=== PATIENT | female | born 1965 | race Caucasian/White ===

== ENCOUNTER 2022-07-01 10:03 | Emergency (ER) | payer MEDICAID ==
[~2022-07-01] VITALS: Ht 165.1 cm; Wt 65.9 kg
[2022-07-01 10:08] VITALS: BP 172/89
== END 2022-07-01 13:45 | disposition home or self-care (01) ==
LOC: ER 10:04
DX: M25.561 Pain in right knee (principal); Z88.8 Allergy status to other drugs, medicaments and biological substances; Z79.899 Other long term (current) drug therapy; X50.1XXA Overexertion from prolonged static or awkward postures, initial encounter; Y93.89 Activity, other specified; Y92.89 Other specified places as the place of occurrence of the external cause; Y99.8 Other external cause status
CPT/HCPCS: 29505; 73560; 99283

== ENCOUNTER 2024-05-12 20:51 | Emergency (ER) | payer MEDICAID ==
[~2024-05-12] VITALS: Ht 165.1 cm; Wt 68.0 kg
[~2024-05-12 20:51] MED LIST: OMEP20TA23 PO; ONDA4TAB6 PO
[2024-05-12 21:06] VITALS: BP 170/103; PULSE 91; RESP 16; O2SAT 98
[2024-05-12 21:57] LABS: BILIRUBIN,URINE NEGATIVE (Neg); CLARITY,URINE SLIGHTLY CLOUDY (Clear); COLOR,URINE YELLOW (Yellow); GLUCOSE, URINE NEGATIVE (Neg); KETONES,URINE NEGATIVE (Neg); LEUKOCYTE ESTERASE ,URINE NEGATIVE (Neg); NITRITES, URINE POSITIVE (Neg); OCCULT BLOOD,URINE NEGATIVE (Neg); PH,URINE 5.5 (4.8-8.0); PROTEIN,URINE TRACE mg/dl (Neg); UROBILINOGEN,URINE 0.2 E.U/dL (0.2-1.0)
[2024-05-12 22:02] LABS: UA COLLECTION TYPE CLN CATCH MIDSTREAM
[2024-05-12 22:04] LABS: BACTERIA,URINE 3+ /HPF (Neg); SQUAMOUS EPITHELIAL CELL,UR FEW /LPF (FEW); WBC,URINE 30-50 /HPF (0-4)
[2024-05-12 22:05] LABS: AMORPHOUS URATES 1+; MUCUS STRANDS FEW /LPF (Neg); RBC,URINE NONE SEEN /HPF (0-2); TRANSITIONAL EPI CELLS,URINE FEW /HPF
[2024-05-12] MEDS ORDERED: PHEN-716 PO (22:35)
[2024-05-12] MEDS ORDERED: CEPH-585 PO (22:35)
[2024-05-12] MEDS: CefTRIAXone 1000mg IM Kit (w/lidocaine diluent) IM ONE (22:50)
[2024-05-12] MEDS: phenazopyridine 100mg tablet PO ONE (22:51)
[2024-05-12 22:58] VITALS: TEMP 98
== END 2024-05-12 22:59 | disposition home or self-care (01) ==
LOC: ER 20:52
DX: N39.0 Urinary tract infection, site not specified (principal); Z88.8 Allergy status to other drugs, medicaments and biological substances; Z88.6 Allergy status to analgesic agent; Z79.899 Other long term (current) drug therapy
CPT/HCPCS: 81001; 87077; 87088; 87186; 96372; 99283; J0696

== ENCOUNTER 2024-06-12 10:21 | Inpatient (IN) | payer MEDICAID ==
[~2024-06-12] VITALS: Ht 160 cm; Wt 78.3 kg
[~2024-06-12 10:21] MED LIST changes: +PHEN-716 PO
[2024-06-12] MEDS ORDERED: MELO-102 PO (12:45)
[2024-06-12 13:18] LABS: BASOPHILS # (AUTO) 0.1 X10'3 (0-0.2); BASOPHILS % (AUTO) 0.2 % (0-1); EOSINOPHILS % (AUTO) 0 % (0-6); HEMATOCRIT 43.3 % (35.0-45.0); HEMOGLOBIN 14.1 g/dl (12.0-16.0); LYMPHOCYTES # (AUTO) 0.8 X10'3 (1.1-4.8); LYMPHOCYTES % (AUTO) 3.2 % (21-51); MEAN CORPUSCULAR HEMOGLOBIN 27.8 PG (27.0-31.0); MEAN CORPUSCULAR HGB CONC 32.5 g/dL (33.0-36.5); MEAN CORPUSCULAR VOLUME 85.7 FL (78-98); MEAN PLATELET VOLUME 7.7 FL (7.4-10.4); MONOCYTES # (AUTO) 1.2 X10'3 (0-0.9); MONOCYTES % (AUTO) 5.1 % (2-12); NEUTROPHILS # (AUTO) 21.5 X10'3 (1.8-7.7); NEUTROPHILS % (AUTO) 91.5 % (42-75); PLATELET COUNT 205 X10'3 (140-440); RED BLOOD COUNT 5.06 X10'6 (4.20-5.60); RED CELL DISTRIBUTION WIDTH 15.5 % (11.5-14.5); WHITE BLOOD COUNT 23.5 X10'3 (4.5-11.0)
[2024-06-12 13:39] LABS: ALANINE AMINOTRANSFERASE 19 U/L (12-78); ALBUMIN 3.4 G/DL (3.4-5.0); ALBUMIN/GLOBULIN RATIO 0.8 (1.1-1.5); ALKALINE PHOSPHATASE 88 IU/L (46-116); ANION GAP 8 (8-16); ASPARTATE AMINO TRANSFERASE 19 U/L (10-37); BILIRUBIN,TOTAL 0.5 MG/DL (0.1-1.0); BLOOD UREA NITROGEN 18 MG/DL (7-18); BUN/CREATININE RATIO 14.8 (10.0-20.0); CALCIUM 8.7 MG/DL (8.5-10.1); CHLORIDE 98 MMOL/L (99-107); CREATININE 1.22 MG/DL (0.40-0.90); GLUCOSE 120 MG/DL (70-104); POTASSIUM 3.9 MMOL/L (3.5-5.1); SODIUM 136 MMOL/L (135-145); TOTAL CARBON DIOXIDE 30.4 MMOL/L (24-32); TOTAL PROTEIN 7.7 G/DL (6.4-8.2); eCRCL 41 ML/MIN; eGFR 45 ML/MIN
[2024-06-12 14:02] LABS: TOTAL CELLS COUNTED 100
[2024-06-12 14:03] LABS: PLATELET ESTIMATE NORMAL; STOMATOCYTES 1+
[2024-06-12 14:28] LABS: BILIRUBIN,URINE NEGATIVE (Neg); CLARITY,URINE CLOUDY (Clear); COLOR,URINE YELLOW (Yellow); GLUCOSE, URINE NEGATIVE (Neg); KETONES,URINE TRACE mg/dl (Neg); LEUKOCYTE ESTERASE ,URINE MODERATE (Neg); NITRITES, URINE NEGATIVE (Neg); OCCULT BLOOD,URINE NEGATIVE (Neg); PROTEIN,URINE 100 mg/dl (Neg); UROBILINOGEN,URINE 0.2 E.U/dL (0.2-1.0)
[2024-06-12 14:30] LABS: UA COLLECTION TYPE CLN CATCH MIDSTREAM
[2024-06-12 14:42] LABS: BACTERIA,URINE 1+ /HPF (Neg); MUCUS STRANDS MODERATE /LPF (Neg); RBC,URINE NONE SEEN /HPF (0-2); SQUAMOUS EPITHELIAL CELL,UR MANY /LPF (FEW); WBC,URINE 30-50 /HPF (0-4)
[2024-06-12 15:07] LABS: PRO BRAIN NATRIURETIC PEPTIDE 381 PG/ML (0-125)
[2024-06-12] MEDS ORDERED: CefTRIAXone 2gm/D5W 50ml BAG 50 ML IV ONE (15:35)
[2024-06-12] MEDS: levoFLOXACIN-Levaquin 500mg/D5 100 ML IV ONE (15:35)
[2024-06-12] MEDS ORDERED: magnesium sulf-water 2g/50mL 50 ML IV PRN (15:40)
[2024-06-12] MEDS ORDERED: magnesium sulf-water 4G/100mL 100 ML IV PRN (15:40)
[2024-06-12] MEDS ORDERED: DEXTROSE 15 GM of carb/4 tabs (each vial/BOTTLE has 4 tablets) PO PRN ×2 (15:40)
[2024-06-12] MEDS ORDERED: dextrose 50%-water 50ml dispensing syringe IV PRN ×2 (15:40)
[2024-06-12] MEDS ORDERED: mag hydrox/Alum hydrox/simeth 30ml oral suspension PO PRN (15:40)
[2024-06-12] MEDS ORDERED: albuterol 2.5 MG/3 ML nebule NEB PRN (15:40)
[2024-06-12] MEDS ORDERED: potassium Cl 20 mEq SR tablet PO PRN ×2 (15:40)
[2024-06-12] MEDS ORDERED: potassium Cl 40MEQ/1/2NS 520ml 520 ML IV PRN (15:40)
[2024-06-12] MEDS ORDERED: vancomycin inj 1,000 MG in normal saline 250ml IV soln 250 ML IV ONE (15:40)
[2024-06-12] MEDS ORDERED: glucagon, human recombinant 1mg kit SUBCUT PRN (15:40)
[2024-06-12] MEDS ORDERED: vancomycin 1,750 MG in NS 350ml IV soln IV ONE (16:05)
[2024-06-12] MEDS: CEFEPIME 2gm in D5W 50mL 50 ML IV SCH (16:42)
[2024-06-12] MEDS: INSULIN LISPRO 100 UNIT/ML INSULN.PEN MULTI-DOSE SQ SCH (17:00)
[2024-06-12] MEDS: VANCOMYCIN/H2O 1.75g/350mL PB 350 ML IV ONE (18:57)
[2024-06-12] MEDS: normal saline 1000ml 1,000 ML IV SCH (18:57)
[2024-06-12 19:22] VITALS: PULSE 95; RESP 22; O2SAT 96
[2024-06-12] MEDS: docusate sod 100mg capsule PO SCH (20:00)
[2024-06-12] MEDS: K and/or MAG REPLACEMENT MC SCH (20:00)
[2024-06-12] MEDS: enoxaparin 40mg/0.4ml syringe SQ SCH (20:04)
[2024-06-12 21:30] VITALS: BP 85/58; PULSE 92; RESP 22; TEMP 99.2; O2SAT 89
[2024-06-12 22:00] VITALS: RESP 18
[2024-06-12 23:45] LABS: URINE AMPHETAMINE SCREEN POSITIVE (Neg); URINE BARBITUATE SCREEN NEGATIVE (Neg); URINE BENZODIAZEPINES SCREEN NEGATIVE (Neg); URINE CANNABINOID SCREEN NEGATIVE (Neg); URINE COCAINE SCREEN NEGATIVE (Neg); URINE METHADONE SCREEN NEGATIVE (Neg); URINE OPIATE SCREEN POSITIVE (Neg); URINE PHENCYCLIDINE SCREEN NEGATIVE (Neg)
[2024-06-13] VITALS (9 sets, daily range): BP systolic 122–148; BP diastolic 62–84; PULSE 67–94; RESP 14–18; TEMP 97.4–98.6; O2SAT 92–100
[2024-06-13] MEDS: acetaminophen 325mg tablet PO PRN (00:33)
[2024-06-13 04:47] LABS: BASOPHILS # (AUTO) 0.1 X10'3 (0-0.2); BASOPHILS % (AUTO) 0.3 % (0-1); EOSINOPHILS % (AUTO) 0.1 % (0-6); HEMATOCRIT 37.1 % (35.0-45.0); LYMPHOCYTES # (AUTO) 1.7 X10'3 (1.1-4.8); LYMPHOCYTES % (AUTO) 6.9 % (21-51); MEAN CORPUSCULAR HEMOGLOBIN 27.9 PG (27.0-31.0); MEAN CORPUSCULAR HGB CONC 32.4 g/dL (33.0-36.5); MEAN PLATELET VOLUME 7.2 FL (7.4-10.4); MONOCYTES # (AUTO) 1.4 X10'3 (0-0.9); MONOCYTES % (AUTO) 5.6 % (2-12); NEUTROPHILS # (AUTO) 21.4 X10'3 (1.8-7.7); NEUTROPHILS % (AUTO) 87.1 % (42-75); PLATELET COUNT 158 X10'3 (140-440); RED BLOOD COUNT 4.32 X10'6 (4.20-5.60); RED CELL DISTRIBUTION WIDTH 15.4 % (11.5-14.5); WHITE BLOOD COUNT 24.5 X10'3 (4.5-11.0)
[2024-06-13] MEDS: VANCOMYCIN 1GM 200ML H20 (PEG) 200 ML IV SCH (05:15)
[2024-06-13 05:29] LABS: ALANINE AMINOTRANSFERASE 12 U/L (12-78); ALBUMIN 2.7 G/DL (3.4-5.0); ALBUMIN/GLOBULIN RATIO 0.7 (1.1-1.5); ALKALINE PHOSPHATASE 73 IU/L (46-116); ANION GAP 3 (8-16); ASPARTATE AMINO TRANSFERASE 15 U/L (10-37); BILIRUBIN,TOTAL 0.4 MG/DL (0.1-1.0); BLOOD UREA NITROGEN 25 MG/DL (7-18); BUN/CREATININE RATIO 22.1 (10.0-20.0); CALCIUM 8.3 MG/DL (8.5-10.1); CHLORIDE 104 MMOL/L (99-107); CREATININE 1.13 MG/DL (0.40-0.90); GLUCOSE 114 MG/DL (70-104); MAGNESIUM 1.5 MG/DL (1.5-2.4); POTASSIUM 3.5 MMOL/L (3.5-5.1); SODIUM 139 MMOL/L (135-145); TOTAL CARBON DIOXIDE 32.1 MMOL/L (24-32); TOTAL PROTEIN 6.7 G/DL (6.4-8.2); eCRCL 44 ML/MIN; eGFR 49 ML/MIN
[2024-06-13] MEDS: nicotine 21mg patch - 24 hr TD SCH (08:49)
[2024-06-13] MEDS: normal saline 1000ml 1,000 ML IV ONE (10:43)
[2024-06-13] MEDS: loratadine 10mg tablet PO SCH (16:48)
[2024-06-13] MEDS: ipratropium/albuterol 3ml nebule NEB PRN (20:31)
[2024-06-13] MEDS: CEFEPIME 2gm in D5W 50mL 50 ML IV SCH (21:30)
[2024-06-13] MEDS: ondansetron/PF 4mg/2ml inj IV PRN (22:08)
[2024-06-13] MEDS: ibuprofen tablet 400 MG TABLET PO ONE (23:56)
[2024-06-13] MEDS: diphenhydrAMINE 50 mg/ml inj IV ONE (23:56)
[2024-06-14] VITALS (9 sets, daily range): BP systolic 123–145; BP diastolic 70–79; PULSE 81–87; RESP 14–18; TEMP 97.6–99.3; O2SAT 87–96
[2024-06-14 04:47] LABS: BASOPHILS % (AUTO) 0.3 % (0-1); EOSINOPHILS # (AUTO) 0.1 X10'3 (0-0.9); EOSINOPHILS % (AUTO) 0.4 % (0-6); HEMOGLOBIN 11.5 g/dl (12.0-16.0); LYMPHOCYTES # (AUTO) 1.5 X10'3 (1.1-4.8); LYMPHOCYTES % (AUTO) 11.8 % (21-51); MEAN CORPUSCULAR HEMOGLOBIN 28.3 PG (27.0-31.0); MEAN CORPUSCULAR HGB CONC 32.7 g/dL (33.0-36.5); MEAN CORPUSCULAR VOLUME 86.5 FL (78-98); MEAN PLATELET VOLUME 7.6 FL (7.4-10.4); MONOCYTES # (AUTO) 0.6 X10'3 (0-0.9); MONOCYTES % (AUTO) 4.8 % (2-12); NEUTROPHILS # (AUTO) 10.6 X10'3 (1.8-7.7); NEUTROPHILS % (AUTO) 82.7 % (42-75); PLATELET COUNT 145 X10'3 (140-440); RED BLOOD COUNT 4.05 X10'6 (4.20-5.60); RED CELL DISTRIBUTION WIDTH 15.3 % (11.5-14.5); WHITE BLOOD COUNT 12.9 X10'3 (4.5-11.0)
[2024-06-14] MEDS: VANCOMYCIN LEVEL IV ONE (05:00)
[2024-06-14 05:02] LABS: ALANINE AMINOTRANSFERASE 14 U/L (12-78); ALBUMIN 2.5 G/DL (3.4-5.0); ALBUMIN/GLOBULIN RATIO 0.6 (1.1-1.5); ALKALINE PHOSPHATASE 72 IU/L (46-116); ANION GAP 5 (8-16); ASPARTATE AMINO TRANSFERASE 14 U/L (10-37); BILIRUBIN,TOTAL 0.2 MG/DL (0.1-1.0); BLOOD UREA NITROGEN 11 MG/DL (7-18); BUN/CREATININE RATIO 16.2 (10.0-20.0); CALCIUM 8.5 MG/DL (8.5-10.1); CHLORIDE 107 MMOL/L (99-107); CREATININE 0.68 MG/DL (0.40-0.90); GLUCOSE 109 MG/DL (70-104); MAGNESIUM 1.5 MG/DL (1.5-2.4); SODIUM 141 MMOL/L (135-145); TOTAL CARBON DIOXIDE 28.9 MMOL/L (24-32); TOTAL PROTEIN 6.5 G/DL (6.4-8.2); VANCOMYCIN,TROUGH 9.9 ug/mL (10.0-20.0); eCRCL 73 ML/MIN; eGFR 88 ML/MIN
[2024-06-14] MEDS: acetaminophen 325mg tablet PO PRN (08:21)
[2024-06-14] MEDS: magnesium hydroxide 30ml (MOM) UD suspension PO PRN (08:24)
[2024-06-14] MEDS ORDERED: LORA10TA7 PO (10:13)
[2024-06-14] MEDS ORDERED: ALBU2.5V7 NEB (10:13)
[2024-06-14] MEDS ORDERED: LEVO-65 PO (10:13)
[2024-06-14] MEDS ORDERED: bisacodyl 10mg suppository rectal RC PRN (12:30)
[2024-06-14] MEDS: VANCOMYCIN/WATER FOR INJ (PEG) 1.25GM/250 ML IVPB IV SCH (16:22)
[2024-06-14] MEDS ORDERED: ALB0.5UD IH (22:28)
[2024-06-14] MEDS ORDERED: DIPH25CA83 PO (22:28)
[2024-06-15] VITALS (8 sets, daily range): BP systolic 161–174; BP diastolic 90–102; PULSE 20–86; RESP 16–20; TEMP 97.4–98.5; O2SAT 93–97
[2024-06-15 06:10] LABS: BASOPHILS % (AUTO) 0.1 % (0-1); EOSINOPHILS % (AUTO) 0.3 % (0-6); HEMATOCRIT 37.8 % (35.0-45.0); HEMOGLOBIN 12.3 g/dl (12.0-16.0); LYMPHOCYTES # (AUTO) 1.3 X10'3 (1.1-4.8); LYMPHOCYTES % (AUTO) 14.2 % (21-51); MEAN CORPUSCULAR HEMOGLOBIN 27.9 PG (27.0-31.0); MEAN CORPUSCULAR HGB CONC 32.5 g/dL (33.0-36.5); MONOCYTES # (AUTO) 0.6 X10'3 (0-0.9); MONOCYTES % (AUTO) 6.2 % (2-12); NEUTROPHILS # (AUTO) 7.3 X10'3 (1.8-7.7); NEUTROPHILS % (AUTO) 79.2 % (42-75); PLATELET COUNT 168 X10'3 (140-440); RED BLOOD COUNT 4.39 X10'6 (4.20-5.60); RED CELL DISTRIBUTION WIDTH 15.5 % (11.5-14.5); WHITE BLOOD COUNT 9.3 X10'3 (4.5-11.0)
[2024-06-15 06:26] LABS: ALANINE AMINOTRANSFERASE 15 U/L (12-78); ALBUMIN 2.7 G/DL (3.4-5.0); ALBUMIN/GLOBULIN RATIO 0.6 (1.1-1.5); ALKALINE PHOSPHATASE 76 IU/L (46-116); ANION GAP 6 (8-16); ASPARTATE AMINO TRANSFERASE 14 U/L (10-37); BILIRUBIN,TOTAL 0.3 MG/DL (0.1-1.0); BLOOD UREA NITROGEN 11 MG/DL (7-18); BUN/CREATININE RATIO 19.3 (10.0-20.0); CALCIUM 9.1 MG/DL (8.5-10.1); CHLORIDE 103 MMOL/L (99-107); CREATININE 0.57 MG/DL (0.40-0.90); GLUCOSE 107 MG/DL (70-104); MAGNESIUM 1.6 MG/DL (1.5-2.4); POTASSIUM 3.9 MMOL/L (3.5-5.1); SODIUM 141 MMOL/L (135-145); TOTAL CARBON DIOXIDE 31.8 MMOL/L (24-32); TOTAL PROTEIN 7.2 G/DL (6.4-8.2); eCRCL 87 ML/MIN; eGFR > 90 ML/MIN
[2024-06-15] MEDS ORDERED: HALLS - SOOTHE MENTHOL 1.8 MG cough drop LOZENGE MM PRN (11:30)
[2024-06-16] VITALS (9 sets, daily range): BP systolic 148–177; BP diastolic 88–99; PULSE 72–85; RESP 16–22; TEMP 96.9–98.2; O2SAT 92–96
[2024-06-16] MEDS: VANCOMYCIN LEVEL IV ONE (05:20)
[2024-06-16 05:54] LABS: BASOPHILS % (AUTO) 0.5 % (0-1); EOSINOPHILS # (AUTO) 0.1 X10'3 (0-0.9); HEMATOCRIT 39.5 % (35.0-45.0); HEMOGLOBIN 13.1 g/dl (12.0-16.0); LYMPHOCYTES # (AUTO) 1.4 X10'3 (1.1-4.8); LYMPHOCYTES % (AUTO) 23.1 % (21-51); MEAN CORPUSCULAR HEMOGLOBIN 28.5 PG (27.0-31.0); MEAN CORPUSCULAR HGB CONC 33.1 g/dL (33.0-36.5); MEAN PLATELET VOLUME 7.7 FL (7.4-10.4); MONOCYTES # (AUTO) 0.5 X10'3 (0-0.9); MONOCYTES % (AUTO) 8.6 % (2-12); NEUTROPHILS # (AUTO) 4.2 X10'3 (1.8-7.7); NEUTROPHILS % (AUTO) 66.8 % (42-75); PLATELET COUNT 203 X10'3 (140-440); RED BLOOD COUNT 4.59 X10'6 (4.20-5.60); RED CELL DISTRIBUTION WIDTH 14.7 % (11.5-14.5); WHITE BLOOD COUNT 6.2 X10'3 (4.5-11.0)
[2024-06-16 06:09] LABS: ALANINE AMINOTRANSFERASE 17 U/L (12-78); ALBUMIN 2.7 G/DL (3.4-5.0); ALBUMIN/GLOBULIN RATIO 0.6 (1.1-1.5); ALKALINE PHOSPHATASE 74 IU/L (46-116); ANION GAP 3 (8-16); ASPARTATE AMINO TRANSFERASE 19 U/L (10-37); BILIRUBIN,TOTAL 0.3 MG/DL (0.1-1.0); BLOOD UREA NITROGEN 11 MG/DL (7-18); BUN/CREATININE RATIO 16.7 (10.0-20.0); CALCIUM 9.2 MG/DL (8.5-10.1); CHLORIDE 103 MMOL/L (99-107); CREATININE 0.66 MG/DL (0.40-0.90); GLUCOSE 112 MG/DL (70-104); MAGNESIUM 1.7 MG/DL (1.5-2.4); POTASSIUM 3.9 MMOL/L (3.5-5.1); SODIUM 141 MMOL/L (135-145); TOTAL CARBON DIOXIDE 35.4 MMOL/L (24-32); TOTAL PROTEIN 7.5 G/DL (6.4-8.2); VANCOMYCIN,TROUGH 13.5 ug/mL (10.0-20.0); eCRCL 75 ML/MIN; eGFR > 90 ML/MIN
[2024-06-16] MEDS: amLODIPine 5mg tablet PO SCH (14:08)
[2024-06-16] MEDS: VANCOMYCIN 1,500MG in normal saline IV soln 300 ML IV SCH (17:30)
[2024-06-16] MEDS: amLODIPine 5mg tablet PO ONE (23:59)
[2024-06-17 04:36] VITALS: PULSE 72; RESP 16; O2SAT 92
[2024-06-17 04:43] VITALS: PULSE 76; RESP 16
[2024-06-17 06:00] VITALS: BP 153/98; PULSE 80; RESP 16; TEMP 98.8; O2SAT 91
[2024-06-17 08:00] VITALS: RESP 18; O2SAT 97
[2024-06-17 08:46] LABS: BASOPHILS # (AUTO) 0.1 X10'3 (0-0.2); BASOPHILS % (AUTO) 0.8 % (0-1); EOSINOPHILS # (AUTO) 0.1 X10'3 (0-0.9); EOSINOPHILS % (AUTO) 1.1 % (0-6); HEMATOCRIT 42.6 % (35.0-45.0); HEMOGLOBIN 14.1 g/dl (12.0-16.0); LYMPHOCYTES # (AUTO) 1.5 X10'3 (1.1-4.8); LYMPHOCYTES % (AUTO) 22.3 % (21-51); MEAN CORPUSCULAR HEMOGLOBIN 28.1 PG (27.0-31.0); MEAN CORPUSCULAR HGB CONC 33.1 g/dL (33.0-36.5); MEAN CORPUSCULAR VOLUME 84.9 FL (78-98); MEAN PLATELET VOLUME 7.1 FL (7.4-10.4); MONOCYTES # (AUTO) 0.3 X10'3 (0-0.9); MONOCYTES % (AUTO) 4.2 % (2-12); NEUTROPHILS # (AUTO) 4.8 X10'3 (1.8-7.7); NEUTROPHILS % (AUTO) 71.6 % (42-75); PLATELET COUNT 245 X10'3 (140-440); RED BLOOD COUNT 5.01 X10'6 (4.20-5.60); RED CELL DISTRIBUTION WIDTH 14.8 % (11.5-14.5); WHITE BLOOD COUNT 6.6 X10'3 (4.5-11.0)
[2024-06-17 09:23] LABS: ALANINE AMINOTRANSFERASE 32 U/L (12-78); ALBUMIN/GLOBULIN RATIO 0.6 (1.1-1.5); ALKALINE PHOSPHATASE 86 IU/L (46-116); ANION GAP 10 (8-16); ASPARTATE AMINO TRANSFERASE 30 U/L (10-37); BILIRUBIN,TOTAL 0.4 MG/DL (0.1-1.0); BLOOD UREA NITROGEN 14 MG/DL (7-18); BUN/CREATININE RATIO 20.3 (10.0-20.0); CALCIUM 9.9 MG/DL (8.5-10.1); CHLORIDE 99 MMOL/L (99-107); CREATININE 0.69 MG/DL (0.40-0.90); GLUCOSE 158 MG/DL (70-104); MAGNESIUM 1.7 MG/DL (1.5-2.4); POTASSIUM 3.5 MMOL/L (3.5-5.1); SODIUM 140 MMOL/L (135-145); TOTAL CARBON DIOXIDE 30.9 MMOL/L (24-32); TOTAL PROTEIN 8.4 G/DL (6.4-8.2); eCRCL 72 ML/MIN; eGFR 87 ML/MIN
[2024-06-17 10:22] VITALS: BP 155/90; PULSE 96; RESP 20; TEMP 98.5; O2SAT 96
[2024-06-17 11:12] VITALS: PULSE 96; RESP 20; O2SAT 96
[2024-06-17] MEDS ORDERED: AMLO5TAB4 PO (11:27)
[2024-06-17] MEDS ORDERED: LOSA50TA64 PO (11:27)
[2024-06-18] MEDS ORDERED: VANCOMYCIN LEVEL IV ONE (04:30)
== END 2024-06-17 14:27 | disposition home or self-care (01) | DRG 720 ==
LOC: ER 10:21 → ED HOLD 15:52 → SUR 3N 21:45
PROVIDERS: ADMIT Family Medicine; ATTEND Family Medicine
DX: A41.9 Sepsis, unspecified organism (principal); J18.9 Pneumonia, unspecified organism; J44.0 Chronic obstructive pulmonary disease with (acute) lower respiratory infection; K21.9 Gastro-esophageal reflux disease without esophagitis; E11.9 Type 2 diabetes mellitus without complications; F17.210 Nicotine dependence, cigarettes, uncomplicated; F15.90 Other stimulant use, unspecified, uncomplicated; F17.290 Nicotine dependence, other tobacco product, uncomplicated; N39.0 Urinary tract infection, site not specified; R09.02 Hypoxemia; S29.012A Strain of muscle and tendon of back wall of thorax, initial encounter; Z59.00 Homelessness unspecified; Z82.49 Family history of ischemic heart disease and other diseases of the circulatory system; Z83.3 Family history of diabetes mellitus; Z90.710 Acquired absence of both cervix and uterus; Z00.00 Encounter for general adult medical examination without abnormal findings; Z88.8 Allergy status to other drugs, medicaments and biological substances; X58.XXXA Exposure to other specified factors, initial encounter; Y93.89 Activity, other specified; Y92.89 Other specified places as the place of occurrence of the external cause; Y99.8 Other external cause status
CPT/HCPCS: 36415; 71046; 71250; 72131; 76700; 80053; 80202; 80305; 81001; 82948; 83036; 83605; 83735; 83880; 85007; 85025; 87040; 87070; 87081; 94640; 94760; 97161; 97530; 99285; A4615; G0378; J0692; J1200; J1650; J1815; J1956; J2405; J3370; J3372; J7030; J7040

== ENCOUNTER 2024-08-20 04:12 | Inpatient (IN) | payer MEDICAID ==
[~2024-08-20] VITALS: Ht 165.1 cm; Wt 81.0 kg
[~2024-08-20 04:12] MED LIST changes: +ALB0.5UD IH; +ALBU2.5V7 NEB; +AMLO5TAB4 PO; +DIPH25CA83 PO; +LORA10TA7 PO; +LOSA50TA64 PO; +MELO-102 PO
[2024-08-20 05:02] LABS: BASOPHILS % (AUTO) 0.8 % (0-1); EOSINOPHILS # (AUTO) 0.1 X10'3 (0-0.9); EOSINOPHILS % (AUTO) 1.5 % (0-6); HEMATOCRIT 35.8 % (35.0-45.0); HEMOGLOBIN 11.8 g/dl (12.0-16.0); LYMPHOCYTES # (AUTO) 1.1 X10'3 (1.1-4.8); LYMPHOCYTES % (AUTO) 16.7 % (21-51); MEAN CORPUSCULAR HEMOGLOBIN 28.5 PG (27.0-31.0); MEAN CORPUSCULAR HGB CONC 32.9 g/dL (33.0-36.5); MEAN CORPUSCULAR VOLUME 86.4 FL (78-98); MEAN PLATELET VOLUME 7.2 FL (7.4-10.4); MONOCYTES # (AUTO) 0.5 X10'3 (0-0.9); MONOCYTES % (AUTO) 7.8 % (2-12); NEUTROPHILS # (AUTO) 4.7 X10'3 (1.8-7.7); NEUTROPHILS % (AUTO) 73.2 % (42-75); PLATELET COUNT 202 X10'3 (140-440); RED BLOOD COUNT 4.15 X10'6 (4.20-5.60); RED CELL DISTRIBUTION WIDTH 14.7 % (11.5-14.5); WHITE BLOOD COUNT 6.5 X10'3 (4.5-11.0)
[2024-08-20 05:20] LABS: ALANINE AMINOTRANSFERASE 24 U/L (12-78); ALBUMIN 3.1 G/DL (3.4-5.0); ALBUMIN/GLOBULIN RATIO 0.8 (1.1-1.5); ALKALINE PHOSPHATASE 95 IU/L (46-116); ANION GAP 1 (8-16); ASPARTATE AMINO TRANSFERASE 27 U/L (10-37); BILIRUBIN,TOTAL 0.3 MG/DL (0.1-1.0); BLOOD UREA NITROGEN 16 MG/DL (7-18); BUN/CREATININE RATIO 22.9 (10.0-20.0); CHLORIDE 106 MMOL/L (99-107); GLUCOSE 107 MG/DL (70-104); POTASSIUM 3.7 MMOL/L (3.5-5.1); SODIUM 140 MMOL/L (135-145); TOTAL CARBON DIOXIDE 33.2 MMOL/L (24-32); eCRCL 77 ML/MIN; eGFR 85 ML/MIN
[2024-08-20 05:29] LABS: PRO BRAIN NATRIURETIC PEPTIDE 287 PG/ML (0-125)
[2024-08-20] MEDS ORDERED: ipratropium/albuterol 3ml nebule NEB PRN (05:45)
[2024-08-20] MEDS ORDERED: methylPREDNISolone sod succ/PF 40mg inj. IV SCH (05:45)
[2024-08-20] MEDS: methylPREDNISolone sod succ 125mg/2ml vial IV ONE (06:58)
[2024-08-20] MEDS: CefTRIAXone 2gm/D5W 50ml BAG 50 ML IV ONE (08:51)
[2024-08-20] MEDS: normal saline 1000ML IV soln IVB ONE (08:51)
[2024-08-20] MEDS: albuterol 2.5 MG/3 ML nebule NEB ONE (08:59)
[2024-08-20 09:01] VITALS: PULSE 72; RESP 20
[2024-08-20] MEDS: azithromycin/NS 500mg/250ml 250 ML IV ONE (09:06)
[2024-08-20 09:07] VITALS: PULSE 70; RESP 20; O2SAT 96
[2024-08-20] MEDS ORDERED: magnesium hydroxide 30ml (MOM) UD suspension PO PRN (13:15)
[2024-08-20] MEDS ORDERED: magnesium sulf-water 4G/100mL 100 ML IV PRN (13:15)
[2024-08-20] MEDS ORDERED: mag hydrox/Alum hydrox/simeth 30ml oral suspension PO PRN (13:15)
[2024-08-20] MEDS ORDERED: acetaminophen 325mg tablet PO PRN (13:15)
[2024-08-20] MEDS ORDERED: magnesium sulf-water 2g/50mL 50 ML IV PRN (13:15)
[2024-08-20] MEDS ORDERED: ondansetron/PF 4mg/2ml inj IV PRN (13:15)
[2024-08-20] MEDS ORDERED: magnesium Cl slow-release 64mg tablet PO PRN (13:15)
[2024-08-20] MEDS ORDERED: potassium Cl 40MEQ/1/2NS 520ml 520 ML IV PRN (13:15)
[2024-08-20] MEDS ORDERED: normal saline 1000ml 1,000 ML IV SCH (13:15)
[2024-08-20] MEDS ORDERED: potassium Cl 20 mEq SR tablet PO PRN ×2 (13:15)
[2024-08-20] MEDS ORDERED: azithromycin/NS 500mg/250ml 250 ML IV ONE (13:25)
[2024-08-20 13:30] LABS: MAGNESIUM 1.8 MG/DL (1.5-2.4)
[2024-08-20 13:40] VITALS: BP 160/98; PULSE 72; RESP 19; TEMP 97.7; O2SAT 93
[2024-08-20] MEDS ORDERED: azithromycin/NS 500mg/250ml 250 ML IV SCH (13:41)
[2024-08-20] MEDS ORDERED: methylPREDNISolone sod succ 125mg/2ml vial IV ONE (14:00)
[2024-08-20] MEDS: methylPREDNISolone sod succ/PF 40mg inj. IV ONE (14:55)
[2024-08-20] MEDS: ipratropium/albuterol 3ml nebule NEB SCH (15:00)
[2024-08-20] MEDS ORDERED: methylPREDNISolone sod succ 125mg/2ml vial IV SCH (20:00)
[2024-08-20] MEDS ORDERED: K and/or MAG REPLACEMENT MC SCH (20:00)
[2024-08-20] MEDS ORDERED: heparin, porcine 5000 units/ml vial SQ SCH (20:00)
[2024-08-20] MEDS ORDERED: docusate sod 100mg capsule PO SCH (20:00)
[2024-08-21] MEDS ORDERED: CefTRIAXone/D5W-Rocephin 1gm 50 ML IV SCH (08:00)
== END 2024-08-20 15:51 | disposition left against medical advice (07) | DRG 140 ==
LOC: ER 04:12 → ED HOLD 07:26 → ORTHO 4S 14:13
PROVIDERS: ADMIT Internal Medicine; ATTEND Internal Medicine
DX: J44.1 Chronic obstructive pulmonary disease with (acute) exacerbation (principal); J18.9 Pneumonia, unspecified organism; J44.0 Chronic obstructive pulmonary disease with (acute) lower respiratory infection; Z20.822 Contact with and (suspected) exposure to COVID-19; Z53.21 Procedure and treatment not carried out due to patient leaving prior to being seen by health care provider; R09.02 Hypoxemia; Z83.3 Family history of diabetes mellitus; Z87.891 Personal history of nicotine dependence; Z88.8 Allergy status to other drugs, medicaments and biological substances
CPT/HCPCS: 36415; 71045; 80053; 83605; 83735; 83880; 84145; 84484; 85025; 87040; 87081; 87502; 87503; 87811; 93005; 94640; 94760; 99285; G0378; J0456; J0696; J2919; J7030

== ENCOUNTER 2025-04-15 11:57 | Inpatient (IN) | payer MEDICAID ==
[~2025-04-15] VITALS: Ht 165.1 cm; Wt 78.0 kg
[~2025-04-15 11:57] MED LIST changes: -AMLO5TAB4 PO; -DIPH25CA83 PO; -LORA10TA7 PO; -LOSA50TA64 PO; -MELO-102 PO; -OMEP20TA23 PO; -ONDA4TAB6 PO; -PHEN-716 PO
--- NOTE | 2025-04-15 13:16 | RADIOLOGY REPORT ---
EXAM: DI CHEST,SINGLE VIEW HISTORY: COUGH WITH WHEEZING COMPARISON: DI CHEST,SINGLE VIEW on DOS: 08/20/24, CT scan of the chest dated 06/12/2024 pick. TECHNIQUE: Portable upright AP view of the chest was performed. FINDINGS: No no pneumothorax or consolidative infiltrates. There is mild Central interstitial prominence. The heart is borderline enlarged. The central pulmonary arteries are ectatic, better characterized on prior CT scan. IMPRESSION: 1. Mild central interstitial prominence may be due to reactive airways disease or mild CHF. 2. Pulmonary arterial hypertension.
[2025-04-15 13:20] LABS: MEAN PLATELET VOLUME 7.5 FL (7.4-10.4); RED CELL DISTRIBUTION WIDTH 14.3 % (11.5-14.5)
[2025-04-15 13:36] LABS: CREATININE 0.81 MG/DL (0.40-0.90); PRO BRAIN NATRIURETIC PEPTIDE 319 PG/ML (0-125); TOTAL CARBON DIOXIDE 36.3 MMOL/L (24-32); eCRCL 66 ML/MIN; eGFR 72 ML/MIN
--- NOTE | 2025-04-15 14:27 | Physician Documentation ---
History of Present Illness ~ Chief Complaint: Suicidal Ideation Stated Complaint: MENTAL HEALTH EVAL Time Seen by MD: 12:44 OK to notify your PCP?: Yes Primary Medical Doctor: Maria Fernanda Ambriz Source: patient Mode of Arrival: EMS Exam Limitations: no limitations HPI Chief Complaint: Suicidal Caveat: None Independent Historians: None History of Present Illness: Patient is a 60-year-old woman who is thought to be homeless. She [facility] Patient states that she has been depressed for a very long time and has not been on any medications. Patient states that she has been suicidal for months. When asked why she decided to come in today she states that she could not take it any longer. Patient did not describe any specific plan to me but told the nurse that she was thinking of taking pills. Patient denies any other symptoms acute illness. No chest pain, no shortness a breath, no abdominal pain, no nausea vomiting diarrhea. Review of systems: All systems were reviewed and are negative except for what is indicated in the history of present illness. Past Medical History: Depression, COPD Past Surgical History: Noncontributory Social History: Tobacco use, uses methamphetamine. Last use methamphetamine two days ago. Denies alcohol use Medications: Reviewed as documented Nursing Notes Allergies: Reviewed as documented in Nursing Notes Medication Reconciliation Allergies: Coded Allergies: lisinopril (Verified Allergy, Intermediate, 06/12/24) baclofen (Verified Allergy, Unknown, 06/12/24) Scheduled PRN Albuterol Sulfate (Albuterol Sulfate), 2.5 MG NEB Q2H PRN for SOB or wheezing Albuterol Sulfate Nebs* (Proventil Nebs*), Unknown Dose IH Q4H PRN for SOB or wheezing, (Reported) Past Medical History Past Medical History: No Pertinent History Patient History: FH: diabetes mellitus FATHER MOTHER FH: heart disease FATHER Review of Systems All Other Systems at this time: Reviewed and Negative ROS Patient denies any other acute symptoms other than above. All other systems are negative Physical Exam Vital Signs: RN Vital Signs have been reviewed: Yes, Temperature: 98.0, Source: Temporal, Heart Rate: 76, Respiratory Rate: 18, BP: 165/81, Pulse Oximetry: 93, Weight: 80.910 Oxygen Flow Rate: 0 Pulse Oximetry Reflects: adequate oxygenation Physical Exam General Appearance: No distress HEENT: Normal OP, moist oral mucosa, PERRL, EOMI Neck: supple, normal ROM, trachea midline Pulmonary: No respiratory distress, CTA, BS equal Cardiac: RRR, no murmur, rub or gallop, GI: nondistended, soft, nontender, normal bowel sounds, no guarding, no rebound Extremities: normal ROM, no swelling, non-tender Skin: intact, dry, warm, no rashes Neuro: AAOx3, speech is clear, no focal motor weakness Psych: Mood congruent, patient appears sad, flat affect, good eye contact, no apparent hallucination, normal speech Progress Results/Orders Results/Orders Orders - BRIAN BUCKLEY MD Urinalysis, Cult If Indicated (04/15/25 12:36) Chest,Single View (04/15/25 13:01) Completed Orders - BRIAN BUCKLEY MD Cbc/Diff (04/15/25 12:36) BMP (04/15/25 12:36) PBNP (04/15/25 12:36) Chest,Single View (04/15/25 13:01) Vital Signs 04/15/25 04/15/25 04/15/25 04/15/25 12:06 12:38 12:39 13:29 Temp 98.0 Pulse 65 90 76 Resp 18 18 17 18 B/P (MAP) 157/105 177/100 (125) 165/81 (109) Pulse Ox 96 95 93 O2 Flow Rate 2.0 0 0 Laboratory Tests Test 04/15/25 12:48 White Blood Count 6.5 Red Blood Count 4.87 Hemoglobin 13.6 Hematocrit 42.0 Mean Corpuscular Volume 86.3 Mean Corpuscular Hemoglobin 27.9 Mean Corpuscular Hemoglobin Concent 32.3 L Red Cell Distribution Width 14.3 Platelet Count 213 Mean Platelet Volume 7.5 Neutrophils (%) (Auto) 62.4 Lymphocytes (%) (Auto) 29.2 Monocytes (%) (Auto) 6.8 Eosinophils (%) (Auto) 0.8 Basophils (%) (Auto) 0.8 Neutrophils # (Auto) 4.1 Lymphocytes # (Auto) 1.9 Monocytes # (Auto) 0.4 Eosinophils # (Auto) 0.1 Basophils # (Auto) 0.1 CBC Comment Sodium Level 141 Potassium Level 4.3 Chloride Level 102 Carbon Dioxide Level 36.3 H Anion Gap 3 L Blood Urea Nitrogen 18 Creatinine 0.81 Estimated GFR/1.73 m2 72 BUN/Creatinine Ratio 22.2 H Glucose Level 101 Calcium Level 8.8 Pro-B-Type Natriuretic Peptide 319 H Albumin 3.3 L Chemistry Comments Medical Decision Making Additional information obtaine: old records Findings Differential diagnosis includes but is not limited to: Depression, suicidal, homicidal, substance abuse, methamphetamine abuse EKG independent interpretation: Chest x-ray, single view, indication: Independent interpretation: Laboratory data independent interpretation: CBC: Unremarkable CMP: Unremarkable Pro BNP: 319 Urinalysis: Pending Toxicology: Pending Emergency department course/medical decision-making: Patient is a 60-year-old woman who states that she is normally usually homicidal not suicidal. Patient may or may not have a plan. Patient is medically cleared and stable for psychiatric evaluation. Patient will be placed on a 1799. Consultation/communications: Psychiatric consultation by [facility] is pending. Differential Dx:Considerations: Include: Other (See above) Departure Time of Disposition: 14:27 Disposition: 30 STILL A PATIENT Impression: Primary Impression: Depression Qualified Codes: F32.2 - Major depressive disorder, single episode, severe without psychotic features Additional Impressions: Suicidal ideations Methamphetamine abuse Condition: Stable Discharge Instructions: Suicidal Feelings: How to Help Yourself, Depression, Adult Education Educated: Patient Educated regarding: diagnosis, treatment Signature Scribe Signature: No scribe Attestation: No scribe BRIAN BUCKLEY MD Apr 15, 2025 14:27
[2025-04-15] MEDS ORDERED: MELO-102 PO (15:08)
[2025-04-15] MEDS ORDERED: LOSA50TA64 PO (15:08)
[2025-04-15] MEDS ORDERED: ALBUTEROL INH (15:08)
[2025-04-15] MEDS ORDERED: AMLO5TAB16 PO (15:08)
[2025-04-15] MEDS ORDERED: CETI10TA14 PO (15:08)
[2025-04-15] MEDS ORDERED: LORA10TA7 PO (15:08)
[2025-04-15] MEDS ORDERED: FLUT16SP BOTHNARES (15:08)
[2025-04-15] MEDS ORDERED: [UNRECOGNIZED DRUG - OTHER] INH (15:08)
[2025-04-15] MEDS ORDERED: NICO-631 TOP (15:08)
[2025-04-15] MEDS ORDERED: LIDO700A47 TD (15:08)
[2025-04-15 15:24] LABS: URINE AMPHETAMINE SCREEN POSITIVE (Neg); URINE BARBITUATE SCREEN NEGATIVE (Neg); URINE BENZODIAZEPINES SCREEN NEGATIVE (Neg); URINE CANNABINOID SCREEN NEGATIVE (Neg); URINE COCAINE SCREEN NEGATIVE (Neg); URINE METHADONE SCREEN NEGATIVE (Neg); URINE OPIATE SCREEN NEGATIVE (Neg); URINE PHENCYCLIDINE SCREEN NEGATIVE (Neg)
[2025-04-15] MEDS: ipratropium/albuterol 3ml nebule NEB ONE (15:24)
[2025-04-15 15:26] VITALS: PULSE 76; RESP 18; O2SAT 97
[2025-04-15 15:30] VITALS: PULSE 91; RESP 18; O2SAT 97
[2025-04-15 15:58] LABS: LEUKOCYTE ESTERASE ,URINE NEGATIVE (Neg); NITRITES, URINE NEGATIVE (Neg); OCCULT BLOOD,URINE NEGATIVE (Neg)
[2025-04-15 15:59] LABS: UA COLLECTION TYPE CLN CATCH MIDSTREAM
[2025-04-16] MEDS: nicotine 14mg patch - 24hr TD SCH (10:20)
[2025-04-16] MEDS: MELOXICAM 7.5 MG TABLET PO SCH (10:21)
[2025-04-16] MEDS: fluticasone nasal spray 16GM bottle NS SCH (10:21)
[2025-04-16 13:55] VITALS: BP 164/92; PULSE 20; RESP 20; TEMP 98.4; O2SAT 92
[2025-04-16 15:10] VITALS: RESP 20; O2SAT 92
[2025-04-16 17:20] VITALS: PULSE 101; RESP 18; O2SAT 96
[2025-04-16] MEDS: albuterol 2.5 MG/3 ML nebule NEB PRN (17:20)
[2025-04-16 17:21] VITALS: PULSE 99; RESP 20
[2025-04-16 19:00] VITALS: RESP 16; O2SAT 93
[2025-04-16 19:51] VITALS: BP 131/86; PULSE 100; RESP 16; TEMP 97.2; O2SAT 93
[2025-04-17 07:00] VITALS: RESP 16; O2SAT 93
[2025-04-17 08:00] VITALS: BP 165/94; PULSE 85; RESP 16; TEMP 98.4; O2SAT 93
--- NOTE | 2025-04-17 13:39 | HISTORY AND PHYSICAL ---
MH History & Physical - Blank History and Physical CHIEF COMPLIANT SUICIDE IDEATION HISTORY OF PRESENT ILLNESS Patient is a 60-year-old woman who is thought to be homeless. She is brought in by ambulance from [facility]. Patient states that she has been depressed for a very long time and has not been on any medications. Patient st ates that she has been suicidal for months. When asked why she decided to come in today she states that she can not take it any longer. Patient did not describe any specific plan to me but told the nurse that she was thinking of taking pills. Patient denies any other symptoms acute illness. No chest pain. No shortness of breath. No abdominal pain. No nausea vomiting diarrhea. CHART REVIEW Pt was placed on a 5150 hold after she presented to the ED reporting that sheis "not well". Doesn't think she can function and made suicidal statements.The pt has been living with her boyfriend for the last 5 years, often camping illegally, she has been using meth for several years, throughout her life she has had 8 children all 8 have had involvement in the [employer] system, all are adutls now, one is from a drug overdose. The pt reports no history of mental illness and doesn't feel she needs mental health treatment or medications because she believes her current issue is "emotional" and describes her current life issues a big part of the problem. The pt states that she has an ECM worker that has been assisting her and was going to refer her to the [facility] at the [facility]. The pt would like her discharge plan to be to the [facility], unsure if this is plausible or not. Will work on a d/c plan once she has stabilized and is close to being ready to discharge. ASSESSMENT The patient was interviewed in observation room. The patient was actively . The patient endorses "I'm depressed and I feel like I was going crazy, nutty" "I am really glad I came in here." The patient endorses she was diagnosed with methamphetamine induced psychosis in in 1986 and was prescribed a medication but can not recall the name of the medication. "I thought I can no longer make it in life." The patient denies a plan. Denies HI. Denies AVH. The patient endorses adequate sleep and food intake The patient is stable no acute distress noted. The patient presents as cooperative and a bit depressed and suicidal. Per staff report patient is medication compliant. Per staff report no abnormal behaviors. Will continue daily assessment and adjusting treatment as needed. Closely monitor behavior and response to medication during hospitalization. Discussed treatment plan with patient. ASE/risks and benefits of chosen treatment. She verbalized understanding and consented to treatment. REVIEW OF LABS WBC 6.6 RBC 4.87 HEMOGLOBIN 13.6 HEMATOCRIT 42.0 PLATELET 213 SODIUM 141 POTASSIUM 4.3 CHLORIDE 102 ANION GAP 3 BUN 18 CREATININE 0.81 CALCIUM 8.8 ALBUMIN 3.3 TSH 0.60 URINALYSIS NEGATIVE URINE TOX SCREEN POSITIVE AMPHETAMINE MENTAL STATUS EXAM APPEARANCE: DISHEVELED. SPEECH: CIRCUMSTANTIAL EYE CONTACT: INTERMITTENT AFFECT: FLAT MOOD: DEPRESSED ORIENTATION IMPAIRMENT: NONE MEMORY IMPAIRMENT: NONE ATTENTION: FULL HALLUCINATIONS: DENIES SUICIDALITY: IDEATION DELUSIONS: PARANOID BEHAVIOR: COOPERATIVE JUDGMENT: FAIR INSIGHT: FAIR TREATMENT Initiate ZOLOFT 50MG PO DAILY Initiate ZYPREXA 2.5 MG P.O. Q.H.S. TRAZODONE 50 MG P.O. Q.H.S. PRN THORAZINE 50 MG P.O. Q.6 PRN AGITATION/ANXIETY HYDROXYZINE 50 MG P.O. Q.6 PRN ANXIETY/AGITATION BENADRYL 50 MG P.O. Q.6 PRN EPS [id number] is unable to formulate a plan for safety. We are still titrating medications to an effective dose while maintaining a therapeutic environment to prevent decompensation and readmission. Monitoring by Staff, Milieu, Group, and Individual counseling as needed -- According to the [place] Suicide Assessment the above named patient is on Q15 MINUTE CHECKS. Total time spent 90 minutes on REVIEW OF Clinical notes [X ] RN notes [X] PCT documentation [X] YOSHI notes Labs [ X] Medications [X] Care trends/care activity [X] Vitals [X] DISCUSSION WITH wing scorer [X] Staff SW Treatment Team [X] DISCHARGE UNSURE AT THIS TIME. DISCHARGE HOMELESS ONCE STABLE Past Psychiatric History Past Psychiatric History PSYCHIATRIC MENTAL HEALTH HOSPITALIZATION IN 1986 DIAGNOSIS DRUG-INDUCED PSYCHOSIS Past Medical History Past Medical History SEE MEDICAL H & P Past Surgical History Past Surgical History HYSTERECTOMY Past Family History Patient History: FH: diabetes mellitus FATHER MOTHER FH: heart disease FATHER Substance Abuse History Substance Abuse History ILLICIT [id number] AND OFF FOR THE LAST 4-5 YEARS TOBACCO-3-5 CIGARETTES PER DAY ALCOHOL-DENIES MARIJUANA-DENIES Personal History Current Living Situation HOMELESS Marital & Relationship History X3.8 CHILDREN [place] ADULTS-SINGLE Sexual History DEFER Occupational History UNEMPLOYED Social Activity BORN IN [facility] RAISED IN [employer] 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
[2025-04-17 17:44] VITALS: PULSE 104; RESP 16; O2SAT 91
[2025-04-17 19:00] VITALS: RESP 16; O2SAT 93
[2025-04-17] MEDS: neomy sulf/bacitrac zn/polymixin b oint 28.4 gm tube TP PRN (19:30)
[2025-04-17] MEDS: PERFLUTREN PROTEIN-A MICROSPHR (Optison) 0.22 MG/ML 3ML VIAL IV ONE (19:40)
[2025-04-17 20:06] VITALS: BP 123/68; PULSE 95; RESP 16; TEMP 98.8; O2SAT 93
--- NOTE | 2025-04-17 20:34 | HISTORY AND PHYSICAL-Residence ---
History & Physical Providers to CC Resident Creating Document: DOYLELOULOUJUAREZISABELLE ~ History of Present Illness Primary Medical Doctor: Maria Fernanda Ambriz Reason for Admit\Complaint: Psychiatric illness History of Present Illness This is a 60-year-old female admitted agree with mental health unit for psychiatric illness. Patient denies any medical complai, denies SOB chest pain abdominal pain nausea vomiting reports that bowel movements are normal. She reports that she had breathing problems but currently denies shortness of breath. She also reports the leg was very swollen on admission but since she is in hospital, leg swelling has improved with rest. Allergies: Coded Allergies: lisinopril (Verified Allergy, Intermediate, 06/12/24) baclofen (Verified Allergy, Unknown, 06/12/24) Home Medications Home Medications Active Reported Meloxicam 15 Mg Tablet 1 Tab PO DAILY Losartan Potassium 50 Mg Tablet 1 Tab PO DAILY Amlodipine Besylate 5 Mg Tablet 1 Tab PO DAILY Loratadine 10 Mg Tablet 1 Tab PO DAILY [Albuterol 108MCG/A ] Inh 2 Puff INH 4-6HRS PRN Lidocaine 5 % Adh..patch 1 Patch TD DAILY Fluticasone Propionate 50 Mcg/Actuation [place].susp 2 Sprays BOTHNARES DAILY Cetirizine HCl 10 Mg Tablet 1 Tab PO DAILY Habitrol 14 MG Patch* (Nicotine) 1 Each Patch.td24 1 Patch TOP DAILY Past Medical History Past Medical History She reports that she type 2 diabetes but never took any medication controlled her diabetes with diet and exercise Reports history of hypertension for which she takes lisinopril but discontinued because she developed allergic rashes and hives due to it, Quit lisinopril about 4-5 years ago Past Surgical History Surgical History Comment Hysterectomy Family History Family History: FH: diabetes mellitus FATHER MOTHER FH: heart disease FATHER Past Social History Social History Comment She smokes about 19 cigarettes a day. 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 Exam Vitals: Vital Signs Date Time Temp Pulse Resp B/P (MAP) Pulse Ox O2 Delivery O2 Flow Rate FiO2 04/17/25 20:06 98.8 95 16 123/68 (86) 93 Room Air 04/17/25 17:44 0 21 General: General: Alert and oriented x4 HEENT: Normocephalic and atraumatic. Pupils equal round reactive to light and accommodation. Extraocular movements intact. Oral and nasal mucosa moist Neck: Trachea is in midline. No masses or JVD Chest: Bilateral normal breath sounds. No crackles, rhonchi or wheezes Cardiovascular: Low rate and regular rhythm. S1-S2 normal, no murmur or rub. Abdomen: Soft, nontender nondistended. Bowel sounds present Upper Extremities: No cyanosis clubbing or edema. Lower Extremities: No cyanosis clubbing or edema noted in lower extremities, however varicose veins noted in both legs Wounds noticed on left leg. Central Nervous System: No gross sensory or motor deficits. CN II to XII intact Skin: Warm and dry Diagnostic Data Last Recorded Lab Results: 04/15/25 1248 04/15/25 1248 Additional Plan 60-year-old female admitted in adult Mental Health unit for psychiatric illness. Elevated proBNP Patient denies shortness of breath Probnp 319 Bilateral leg swelling Follow-up with echo Chest x-ray: Mild central interstitial prominence may be due to reactive airways disease or mild CHF. Administered one dose of Lasix 40 MG PO once. Hypertension Continue amlodipine 5 mg po Multiple wounds noted on lower extremity Consulted Wound Care Continue using Neosporin antibiotic ointment Disposition: Patient denies any symptoms, follow-up with echo as pro BNP is mildly elevated Hospitalist team will continue to monitor the patient. Juarez Doyle PGY 1 PATIENT IS SEEN AND EXAMINED AGREE WITH THE ABOVE Date of Service: Apr 17, 2025 Billing Provider: ISAÍAS GARCIA MD Common Visit Codes: [id number] INP/OBS CARE (HIGH) JUAREZ DOYLE, RES Apr 17, 2025 20:34 ISAÍAS GARCIA MD Apr 20, 2025 14:02
[2025-04-17] MEDS: ibuprofen tablet 400 MG TABLET PO ONE (21:13)
--- NOTE | 2025-04-18 05:33 | PROGRESS NOTE ---
Progress Note Dictate Providers to CC ~ Central Line/PICC still needed: N\\A Antibiotic Ordered?: No MRSA Education MRSA Education Provided to pt: No Objective Vitals Vital Signs Date Time Temp Pulse Resp B/P (MAP) Pulse Ox O2 Delivery O2 Flow Rate FiO2 04/17/25 20:06 98.8 95 16 123/68 (86) 93 Room Air 04/17/25 17:44 0 21 Lab Results: 04/15/25 1248 04/15/25 1248 Problem\\Assessment\\Plan Problems/Diagnosis: (1) Unspecified psychosis (2) Depression, unspecified (3) Methamphetamine abuse (4) Suicidal ideations Psychiatrist's Progress Note Date of Service: Apr 18, 2025 Notes CHART REVIEW Pt was placed on a 5150 hold after she presented to the ED reporting that sheis "not well". Doesn't think she can function and made suicidal statements.The pt has been living with her boyfriend for the last 5 years, often camping illegally, she has been using meth for several years, throughout her life she has had 8 children all 8 have had involvement in the [employer] [facility] system, all are adutls now, one is from a drug overdose. The pt reports no history of mental illness and doesn't feel she needs mental health treatment or medications because she believes her current issue is "emotional" and describes her current life issues a big part of the problem. The pt states that she has an ECM worker that has been assisting her and was going to refer her to the [facility] at the [facility]. The pt would like her discharge plan to be to the [facility], unsure if this is plausible or not. Will work on a d/c plan once she has stabilized and is close to being ready to discharge. ASSESSMENT The patient was interviewed in observation room. The patient was actively resting in bed with eyes open . The patient endorses "I feel a little better." "I still feel I am going a little crazy, though." The patient endorses she was diagnosed with methamphetamine induced psychosis in in 1986 and was prescribed a medication but can not recall the name of the medication. "I thought I can no longer make it in life." The patient denies a plan. Denies HI. Denies AVH. The patient endorses adequate sleep and food intake The patient is stable no acute distress noted. The patient presents as cooperative and depressed and suicidal. Per staff report patient is medication compliant. Per staff report no abnormal behaviors. Will continue daily assessment and adjusting treatment as needed. Closely monitor behavior and response to medication during hospitalization. Results Of any Diagn. Testing REVIEW OF LABS WBC 6.6 RBC 4.87 HEMOGLOBIN 13.6 HEMATOCRIT 42.0 PLATELET 213 SODIUM 141 POTASSIUM 4.3 CHLORIDE 102 ANION GAP 3 BUN 18 CREATININE 0.81 CALCIUM 8.8 ALBUMIN 3.3 TSH 0.60 URINALYSIS NEGATIVE URINE TOX SCREEN POSITIVE AMPHETAMINE Speech: Normal, Other (CIRCUMSTANTIAL) Eye Contact: Normal Motor Activity: Normal Affect: Flat Mood: Depressed Orientation Impairment: None Memory Impairment: None Attention: Normal Hallucinations: None Other: None Suicidality: None Homicidality: None Delusions: None Behavior: Cooperative Insight: Fair Judgment: Fair Treatment ZOLOFT 50MG PO DAILY ZYPREXA 2.5 MG P.O. Q.H.S. TRAZODONE 50 MG P.O. Q.H.S. PRN THORAZINE 50 MG P.O. Q.6 PRN AGITATION/ANXIETY HYDROXYZINE 50 MG P.O. Q.6 PRN ANXIETY/AGITATION BENADRYL 50 MG P.O. Q.6 PRN EPS [id number] is unable to formulate a plan for safety. We are still titrating medications to an effective dose while maintaining a therapeutic environment to prevent decompensation and readmission. Monitoring by Staff, Milieu, Group, and Individual counseling as needed -- According to the [place] Suicide Assessment the above named patient is on Q15 MINUTE CHECKS. Total time spent 35 minutes on REVIEW OF Clinical notes [X ] RN notes [X] PCT documentation [X] SW notes Labs [ X] Medications [X] Care trends/care activity [X] Vitals [X] DISCUSSION WITH headrig sawyer [X] Staff SW Treatment Team [X] Discharge UNSURE AT THIS TIME. DISCHARGE HOMELESS ONCE STABLE CODING VISIT-PSYCHIATRY Date of Service: Apr 18, 2025 Billing Provider: HAI FRIAS APRN Psych Common Visit Codes: [id number] INP/OBS CARE(Mod) Problem Qualifiers (1) Depression, unspecified: HAI FRIAS APRN Apr 18, 2025 05:33
[2025-04-18 07:00] VITALS: RESP 16; O2SAT 97
[2025-04-18 08:00] VITALS: BP 117/81; PULSE 55; RESP 16; TEMP 98.5; O2SAT 97
[2025-04-18] MEDS: NICOTINE POLACRILEX 2 MG LOZENGE BC PRN (08:46)
[2025-04-18 17:27] VITALS: PULSE 95; RESP 16; O2SAT 97
[2025-04-18 19:00] VITALS: RESP 18; O2SAT 92
[2025-04-18 19:31] VITALS: BP 122/65; PULSE 71; RESP 18; TEMP 97.7; O2SAT 92
--- NOTE | 2025-04-18 19:41 | CARDIOLOGY REPORT ---
APPROVED REPORT EXAM: Comprehensive 2D, Doppler, and color-flow Echocardiogram. Patient Location: [facility] Blood Pressure: 117/81 mmHg Heart Rate: 78 bpm Rhythm: NSR Indications CHF COPD Hx Meth Pro BNP 319 Diabetes No food and beverage checker No previous echo 2D Dimensions LA Diam 3.6 cm IVSd 1.2 (0.7-1.1cm) LVDd 4.2 cm PWd 1.2 (0.7-1.1cm) IVSs 1.4 (0.8-1.2cm) LVDs 2.9 (2.5-4.0cm) Aortic Root(2D) 2.5 cm PWs 1.4 (0.8-1.2cm) LVOT Diameter 1.94 (1.8-2.4cm) LVEF(%) 59.1 (>50%) Ao Asc Diam. 3.24 cm IVC 14.14 mm FS (%) 31.0 % SV 45.6 ml CO 3.7 L/min M-Mode Dimensions MV EPSS 1.0 (<0.5cm) Aortic Valve AoV Peak Ezra. 204.4 cm/s AoV VTI 32.2 cm AO Peak GR. 16.7 mmHg AO Mean GR. 8 mmHg LVOT VTI 24.06 cm LVOT Peak Ezra. 133.9 cm/s ALLEY(VTI)/BSA 2.20 cm2/m2 ALLEY (VTI) 2.20 cm2 AV DI 0.75 % Mitral Valve MV E Velocity 50.7 cm/s MV Peak Gr. 2 mmHg MV DECEL TIME 280 ms MV A Velocity 70.8 cm/s MV PHT 68 ms E/A Ratio 0.7 MVA (PHT) 3.24 cm2 MV VMax 67.7 cm/s TDI Medial E' P. V 6.98 cm/s E/Medial E' 7.3 Tricuspid Valve TR P. Velocity 221 cm/s RAP ESTIMATE 10 mmHg TR Peak Gr. 20 mmHg RVSP 30 mmHg Pulmonary Vein S1 Velocity 63.2 cm/s D2 Velocity 58.9 cm/s PVa Velocity 24.8 cm/s PVa Duration 60 msec LEFT VENTRICLE Normal LV size and function. Mild concentric hypertrophy. LVEF is 60-65%. RIGHT VENTRICLE RV appears mildly dilated with normal contractililty. ATRIA The left atrium size is normal. AORTIC VALVE Trileaflet AV appears sclerotic without stenosis. No insufficiency. MITRAL VALVE MV is thickened with mild annular thickening and no stenosis. Trace mitral regurgitation. TRICUSPID VALVE The tricuspid valve is normal in structure. Trace tricuspid regurgitation. PULMONIC VALVE The pulmonary valve is normal in structure. Trace pulmonic insufficiency. GREAT VESSELS The aortic root is normal in size. The ascending aorta is normal in size. The IVC is normal in size and collapses >50% with inspiration. PERICARDIUM There is no pericardial effusion. Other Information Study Quality: Adequate Conclusion Normal LV size and function. Mild concentric hypertrophy. LVEF is 60-65%. RV appears mildly dilated with normal contractililty. The left atrium size is normal. Trileaflet AV appears sclerotic without stenosis. No insufficiency. MV is thickened with mild annular thickening and no stenosis. The tricuspid valve is normal in structure. Trace tricuspid regurgitation. The pulmonary valve is normal in structure. Trace pulmonic insufficiency. There is no pericardial effusion.
[2025-04-19 07:00] VITALS: RESP 16; O2SAT 94
[2025-04-19 09:10] VITALS: BP 157/86; PULSE 66; RESP 16; TEMP 97.2; O2SAT 94
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
--- NOTE | 2025-04-19 16:19 | PROGRESS NOTE ---
Daily Progress Note Providers to CC ~ Antibiotic Timeout Antibiotic Ordered?: No Subjective This is the hospitalist progress note on patients hospitalized at [facility] [place] [place] [facility]. The patient has no acute medical complaints or concerns and none voiced by nursing staff. Objective Vital Signs Date Time Temp Pulse Resp B/P (MAP) Pulse Ox O2 Delivery O2 Flow Rate FiO2 04/19/25 09:10 97.2 66 16 157/86 (109) 94 Room Air 04/18/25 17:27 0 21 Result Diagram: 04/15/25 1248 04/15/25 1248 Gen. No acute distress alert and oriented Lungs clear to ascultation bilaterally, no wheezes rales or rhonchi appreciated Heart normal sinus rhythm no murmurs rubs or clicks noted Abdomen soft nontender bowel sounds are normoactive Lower extremities no clubbing cyanosis, nor edema appreciated bilaterally Problem\Assessment\Plan Gravely disabled Depression/anxiety Followed by Psychiatry Elevated proBNP Echocardiogram demonstrated an LVEF of 60-65% no signs of heart failure Chest x-ray: Mild central interstitial prominence may be due to reactive airways disease or mild CHF. administered one dose of Lasix 40 MG PO once. No further Lasix dosing is warranted Hypertension Continue amlodipine 5 mg po for which blood pressure control is improving Multiple wounds noted on lower extremity Consulted Wound Care Continue using Neosporin antibiotic ointment The hospitalist service will continue to follow the patient while hospitalized at [facility] Date of Service: Apr 19, 2025 Billing Provider: ARLEEN LUIS DO Common Visit Codes: [id number] INP/OBS CARE(LOW) ARLEEN LUIS DO Apr 19, 2025 16:18
[2025-04-19 19:00] VITALS: RESP 18; O2SAT 96
[2025-04-19 20:00] VITALS: BP 134/74; PULSE 84; RESP 18; TEMP 98.1; O2SAT 96
[2025-04-20 07:00] VITALS: RESP 17; O2SAT 92
[2025-04-20 08:00] VITALS: BP 132/67; PULSE 60; RESP 17; TEMP 98.1; O2SAT 92
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
[2025-04-20] MEDS: Permethrin 1% 59ml topical rinse TP ONE (15:35)
[2025-04-20 16:50] VITALS: PULSE 60; RESP 18; O2SAT 92
[2025-04-20 19:00] VITALS: RESP 18; O2SAT 98
[2025-04-20 20:00] VITALS: BP_SYST 106; BP_DIAS 47; BP_DIAS 87; PULSE 86; RESP 14; RESP 18; TEMP 98.2; O2SAT 98
[2025-04-20] MEDS: calcium carbonate 500mg chew tablet PO PRN (20:14)
[2025-04-21 07:00] VITALS: RESP 14; O2SAT 94
[2025-04-21 08:00] VITALS: BP 109/76; PULSE 64; RESP 14; TEMP 97.9; O2SAT 94
--- NOTE | 2025-04-21 11:50 | PROGRESS NOTE ---
Progress Note Dictate Providers to CC ~ Central Line/PICC still needed: N\\A Antibiotic Ordered?: No MRSA Education MRSA Education Provided to pt: No Objective Vitals Vital Signs Date Time Temp Pulse Resp B/P (MAP) Pulse Ox O2 Delivery O2 Flow Rate FiO2 04/21/25 08:09 64 04/20/25 20:00 98.2 14 106/47 (66) 98 Room Air 04/20/25 16:50 0 21 Problem\\Assessment\\Plan Problems/Diagnosis: (1) Depression, unspecified Psychiatrist's Progress Note Date of Service: Apr 21, 2025 Notes CHART REVIEW Pt was placed on a 5150 hold after she presented to the ED reporting that sheis "not well". Doesn't think she can function and made suicidal statements.The pt has been living with her boyfriend for the last 5 years, often camping illegally , she has been using meth for several years, throughout her life she has had 8 children all 8 have had involvement in the [employer] system, all are adutls now, one is from a drug overdose. The pt reports no history of mental illness and doesn't feel she needs mental health treatment or medications because she believes her current issue is "emotional" and describes her current life issues a big part of the problem. The pt states that she has an ECM worker that has been assisting her and was going to refer her to the [facility] at the [facility]. The pt would like her discharge plan to be to the [facility], unsure if this is plausible or not. Will work on a d/c plan once she has stabilized and is close to being ready to discharge. ASSESSMENT The patient was interviewed in observation room. The patient was actively sitting edge of bed. The patient endorses "good." Denies HI. Denies AVH. The patient endorses adequate sleep and food intake The patient is stable no acute distress noted. The patient presents as cooperative and cooperative. Per staff report patient is medication compliant. Per staff report no abnormal behaviors. Will continue daily assessment and adjusting treatment as needed. Closely monitor behavior and response to medication during hospitalization. Results Of any Diagn. Testing REVIEW OF LABS WBC 6.6 RBC 4.87 HEMOGLOBIN 13.6 HEMATOCRIT 42.0 PLATELET 213 SODIUM 141 POTASSIUM 4.3 CHLORIDE 102 ANION GAP 3 BUN 18 CREATININE 0.81 CALCIUM 8.8 ALBUMIN 3.3 TSH 0.60 URINALYSIS NEGATIVE URINE TOX SCREEN POSITIVE AMPHETAMINE Speech: Normal Eye Contact: Normal Motor Activity: Normal Affect: Full Orientation Impairment: None Memory Impairment: None Attention: Normal Hallucinations: None Other: None Suicidality: None Homicidality: None Delusions: None Behavior: Cooperative Insight: Good Judgment: Good Treatment ZOLOFT 50MG PO DAILY ZYPREXA 2.5 MG P.O. Q.H.S. TRAZODONE 50 MG P.O. Q.H.S. PRN THORAZINE 50 MG P.O. Q.6 PRN AGITATION/ANXIETY HYDROXYZINE 50 MG P.O. Q.6 PRN ANXIETY/AGITATION BENADRYL 50 MG P.O. Q.6 PRN EPS [id number]-Patient is unable to formulate a plan for safety. We are still titrating medications to an effective dose while maintaining a therapeutic environment to prevent decompensation and readmission. Monitoring by Staff, Milieu, Group, and Individual counseling as needed -- According to the [place] Suicide Assessment the above named patient is on Q15 MINUTE CHECKS. Total time spent 40 minutes on REVIEW OF Clinical notes [X ] RN notes [X] PCT documentation [X] SW notes Labs [ X] Medications [X] Care trends/care activity [X] Vitals [X] DISCUSSION WITH nephrology social worker [X] Staff SW Treatment Team [X] Discharge UNSURE AT THIS TIME. DISCHARGE HOMELESS ONCE STABLE CODING VISIT-PSYCHIATRY Date of Service: Apr 21, 2025 Billing Provider: HAI FRIAS APRN Psych Common Visit Codes: [id number] INP/OBS CARE(Low) Problem Qualifiers (1) Depression, unspecified: HAI FRIAS APRN Apr 21, 2025 11:50
[2025-04-21 12:43] VITALS: BP 109/76; PULSE 64; RESP 14; TEMP 97.9; O2SAT 94
[2025-04-21] MEDS ORDERED: CETI10TA14 PO (13:06)
[2025-04-21] MEDS ORDERED: SERT-433 PO (13:06)
[2025-04-21] MEDS ORDERED: LIDO700A47 TD (13:06)
[2025-04-21] MEDS ORDERED: ALBUTEROL INH (13:06)
[2025-04-21] MEDS ORDERED: LOSA50TA64 PO (13:06)
[2025-04-21] MEDS ORDERED: [UNRECOGNIZED DRUG - OTHER] INH (13:06)
[2025-04-21] MEDS ORDERED: MELO-102 PO (13:06)
[2025-04-21] MEDS ORDERED: FLUT16SP NS (13:06)
[2025-04-21] MEDS ORDERED: AMLO5TAB16 PO (13:06)
[2025-04-21] MEDS ORDERED: OLAN2.5T77 PO (13:06)
[2025-04-21] MEDS ORDERED: IVER3TAB2 PO (13:07)
--- NOTE | 2025-04-21 18:01 | PROGRESS NOTE ---
Daily Progress Note Providers to CC ~ Antibiotic Timeout Antibiotic Ordered?: No Subjective This is the hospitalist progress note on patients hospitalized at [facility] [place] [place] [facility]. The patient has no acute medical complaints or concerns and other than being treated for lice there were no other medical concerns voiced by nursing staff. Objective Vital Signs Date Time Temp Pulse Resp B/P (MAP) Pulse Ox O2 Delivery O2 Flow Rate FiO2 04/21/25 12:43 97.9 64 14 109/76 (87) 94 Room Air 04/20/25 16:50 0 21 Gen. No acute distress alert and oriented Lungs no respiratory distress Neuro no focal deficits appreciated, no abnormal movements appreciated Problem\Assessment\Plan Gravely disabled Depression/anxiety Followed by Psychiatry Elevated proBNP Echocardiogram demonstrated an LVEF of 60-65% no signs of heart failure Chest x-ray: Mild central interstitial prominence may be due to reactive airways disease or mild CHF. administered one dose of Lasix 40 MG PO once. No further Lasix dosing is warranted Hypertension Continue amlodipine 5 mg po for which blood pressure control is improving Multiple wounds noted on lower extremity Consulted Wound Care Continue using Neosporin antibiotic ointment Lice Received permethrin treatment and one dose of Ivermectin Remains on contact precautions isolation The hospitalist service will continue to follow the patient while hospitalized at [facility] Date of Service: Apr 21, 2025 Billing Provider: ARLEEN LUIS DO Common Visit Codes: [id number] INP/OBS CARE(LOW) ARLEEN LUIS DO Apr 21, 2025 18:01
[2025-04-21 19:00] VITALS: RESP 16; O2SAT 93
[2025-04-21 20:00] VITALS: BP 114/73; PULSE 98; RESP 16; TEMP 98.1; O2SAT 93
[2025-04-22 07:00] VITALS: RESP 16; O2SAT 96
[2025-04-22 08:00] VITALS: BP 141/76; PULSE 90; RESP 16; TEMP 98.2; O2SAT 96
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
== END 2025-04-22 09:32 | disposition home or self-care (01) | DRG 751 ==
LOC: ER 11:57 → UNDOADMIN 04-16 13:05 → ED HOLD 04-16 13:05 → ADULT MH 04-16 13:56
PROVIDERS: ADMIT Psychiatry & Neurology Psychiatry; ATTEND Psychiatry & Neurology Psychiatry
PROC: GZHZZZZ Group Psychotherapy (ICD-10-PCS; principal; 2025-04-17)
PROC: GZ51ZZZ Individual Psychotherapy, Behavioral (ICD-10-PCS; 2025-04-17)
DX: F32.2 Major depressive disorder, single episode, severe without psychotic features (principal); R45.851 Suicidal ideations; F15.10 Other stimulant abuse, uncomplicated; B85.2 Pediculosis, unspecified; Z59.00 Homelessness unspecified; Z20.822 Contact with and (suspected) exposure to COVID-19; F41.9 Anxiety disorder, unspecified; J44.9 Chronic obstructive pulmonary disease, unspecified; Z88.8 Allergy status to other drugs, medicaments and biological substances; Z90.710 Acquired absence of both cervix and uterus; Z87.891 Personal history of nicotine dependence
CPT/HCPCS: 36415; 71045; 80048; 80305; 81003; 83036; 83880; 84443; 85025; 87081; 87811; 93306; 94640; 94760; 99285